=== PATIENT | female | born 1970 | race Caucasian/White ===

== ENCOUNTER 2022-07-01 16:50 | Emergency (ER) | payer OTHER, SELFPAY ==
--- NOTE | 2022-07-01 16:54 | ED.URI ---
HPI - URI/Sore Throat General Chief Complaint: Upper Respiratory Infection Stated Complaint: cold flu Time Seen by Provider: 07/01/22 16:54 Source: patient and RN notes reviewed History of Present Illness HPI Narrative: Patient is a 51-year-old female who presents to urgent care with complaints of flu-like symptoms with cough, runny nose, fever, congestion, sore throat, bilateral eye drainage and body aches. Patient states that started approximately less than 48 hours ago. Patient states that she has taken 1 dose of NyQuil. Denies any shortness of breath. No other acute complaints. No acute distress noted. Patient aware of the plan of care. Some parts of this dictation were generated by voice recognition software and may contain typographical and/or grammatical inaccuracies. Related Data Home Medications Medication Instructions Recorded Confirmed tirzepatide 10 mg/0.5 mL 10 mg subcut WEEKLY 07/01/22 07/01/22 subcutaneous pen injector (Mounjaro) Allergies Allergy/AdvReac Type Severity Reaction Status Date / Time No Known Allergies Allergy Verified 07/01/22 17:18 Review of Systems Review of Systems: CONSTITUTIONAL: Reports fever and chills EYES: Denies visual changes, redness, or discharge. ENT: Reports rhinorrhea, congestion, sore throat, postnasal drainage CARDIOVASCULAR: Denies chest pain, palpitations, or edema. RESPIRATORY: Reports cough without dyspnea GASTROINTESTINAL: Denies abdominal pain, nausea, vomiting, or diarrhea. GENITOURINARY: Denies dysuria or hematuria. SKIN: Denies rash or itching. MUSCULOSKELETAL: Denies back pain, joint pain. Reports body aches NEUROLOGIC: Denies headache, numbness, or weakness. All other systems reviewed are negative, except as documented in HPI. PMFSH Comments At the time of my signature, I reviewed and agree with the nursing past medical, surgical, social, and family history. There is no relevant family history pertinent to the patient complaint. Exam Narrative: GENERAL: This is a well-nourished, well-developed patient, appears fatigued HEAD: normocephalic, atraumatic. EYES: PERRL. Sclera clear/white. Bilateral injected conjunctiva with clear discharge/drainage. Vision is grossly intact. EARS: External ears normal, auditory canals clear and without drainage, TMs normal without perforation. Hearing grossly intact. NOSE: External nose normal with no obvious nasal discharge, nares without redness, clear rhinorrhea. THROAT: Mucous membranes moist, posterior pharynx clear. Moderate postnasal drainage NECK: Neck supple, non-tender without lymphadenopathy, masses or thyromegaly. CARDIOVASCULAR: Regular rate and rhythm without murmurs, gallops, or rubs. RESPIRATORY: Clear to auscultation. Breath sounds equal bilaterally. No wheezes, rales, or rhonchi. SKIN: warm, intact with no suspicious lesions or rash, good texture and turgor. NEURO: awake, alert, and oriented to person, place and time. There were no obvious focal neurologic abnormalities. EXTREMITIES: No clubbing, cyanosis, or edema. Course Course Level of Care: Express Care Visit Vital Signs Vital signs: Vital Signs Temperature 100.3 F H 07/01/22 16:58 Pulse Rate 117 H 07/01/22 16:58 Respiratory Rate 22 H 07/01/22 16:58 Blood Pressure 111/89 07/01/22 16:58 Pulse Oximetry 97 07/01/22 16:58 Oxygen Delivery Room Air 07/01/22 16:58 Temperature 100.3 F H 07/01/22 16:58 Pulse Rate 117 H 07/01/22 16:58 Respiratory Rate 22 H 07/01/22 16:58 Blood Pressure 111/89 07/01/22 16:58 Pulse Oximetry 97 07/01/22 16:58 Oxygen Delivery Room Air 07/01/22 16:58 Reviewed MDM - URI/Sore Throat MDM Narrative Medical decision making narrative: Reviewed lab results with the patient. She is aware that she is positive for influenza a and negative for strep. Educated patient on strep culture we will call within 72 hours if culture is positive antibiotics are necessary. Advised patient to
[2022-07-01 16:58] VITALS: BP 111/89; PULSE 117; RESP 22; TEMP 37.9; O2SAT 97
[2022-07-01 17:23] VITALS: BP 111/89; PULSE 117; RESP 22; TEMP 37.9; O2SAT 97
== END 2022-07-01 17:28 | disposition home or self-care (01) ==
PROVIDERS: Emergency Provider Nurse Practitioner Family
DX: J10.1 Influenza due to other identified influenza virus with other respiratory manifestations (principal)
CPT/HCPCS: 87081; 87804; 87880; 99213; G0463